=== PATIENT | male | born 1970 | race Caucasian/White ===

== ENCOUNTER 2023-04-09 18:45 | Outpatient (CLI) | payer BC, SELFPAY | END 2023-04-09 18:46 | disposition home or self-care (01) | PROVIDERS: PCP Emergency Medicine; Visit Provider Emergency Medicine | DX: Z00.00 Encounter for general adult medical examination without abnormal findings (principal); R53.83 Other fatigue; R03.0 Elevated blood-pressure reading, without diagnosis of hypertension; Z13.1 Encounter for screening for diabetes mellitus | CPT/HCPCS: 80048; 84443 ==

== ENCOUNTER 2023-05-29 08:23 | Outpatient (CLI) | payer BC, SELFPAY | END 2023-05-29 08:24 | disposition home or self-care (01) | LOC: NFLDREF 05-31 09:29 | PROVIDERS: PCP Emergency Medicine; Referring Provider Emergency Medicine; Visit Provider Emergency Medicine | DX: Z68.30 Body mass index [BMI] 30.0-30.9, adult (principal); Z12.5 Encounter for screening for malignant neoplasm of prostate; Z13.6 Encounter for screening for cardiovascular disorders | CPT/HCPCS: 80061; 80076; 84153 ==

== ENCOUNTER 2023-11-19 19:48 | Outpatient (CLI) | payer OTHER, SELFPAY | END 2023-11-19 19:49 | disposition home or self-care (01) | PROVIDERS: PCP Emergency Medicine; Visit Provider Emergency Medicine | DX: Z01.818 Encounter for other preprocedural examination (principal) | CPT/HCPCS: 80048 ==

== ENCOUNTER 2023-11-27 08:38 | Outpatient (CLI) | payer OTHER, SELFPAY | END 2023-11-27 08:39 | disposition home or self-care (01) | LOC: RAD 08:39 | PROVIDERS: PCP Emergency Medicine; Visit Provider Emergency Medicine | DX: R94.31 Abnormal electrocardiogram [ECG] [EKG] (principal) | CPT/HCPCS: 93306 ==

== ENCOUNTER 2024-06-02 08:35 | Outpatient (CLI) | payer OTHER, SELFPAY | END 2024-06-02 08:36 | disposition home or self-care (01) | LOC: NFLDREF 06-03 13:43 | PROVIDERS: PCP Emergency Medicine; Referring Provider Emergency Medicine; Visit Provider Emergency Medicine | DX: I10 Essential (primary) hypertension (principal); R94.31 Abnormal electrocardiogram [ECG] [EKG]; Z01.818 Encounter for other preprocedural examination | CPT/HCPCS: 80048 ==

== ENCOUNTER 2024-06-09 12:57 | Outpatient (CLI) | payer OTHER, SELFPAY ==
[2024-06-09 14:50] VITALS: BP 135/78; PULSE 76
--- NOTE | 2024-06-09 15:09 | W.PM.STED ---
Stress Test Note Date Date Seen: 06/09/24 Date of test: 06/09/24 Providers Primary care provider: Anjali Gutierrez Stress test physician: Judd Smith Stress Test Note Stress test ordered: Stress Echo Indication for test: Preop Results discussion: Patient is a very nice gentleman who presents for the above test after discussion the risks benefits side effects he would like to proceed indication for test is abnormal EKG preoperative. Cardiac stress test medical history form is reviewed review of the pretest EKG shows normal sinus rhythm with a ventricular rate of 62, there are Q-waves notable. And leads 3 and AVF, blood pressure is 149 on 95. Standard [place] protocol is employed over a time course of 10 minutes 1 seconds, achieved a metabolic equivalent of 11.7 Mets. His maximum heart was 150 which is 104% of the target. Test is terminated because of fulfillment of protocol, and some fatigue, he did not develop any chest pain shortness of breath or any other anginal equivalent symptoms. Impression: Negative electrographic portion of stress test, subjectively negative Follow up suggested: Await echo images, clinical correlation with these will be needed, patient left this testing facility in good condition, there were no complications.
== END 2024-06-09 12:58 | disposition home or self-care (01) ==
LOC: STRESS 12:58
PROVIDERS: PCP Emergency Medicine; Visit Provider Emergency Medicine
DX: R94.31 Abnormal electrocardiogram [ECG] [EKG] (principal)
CPT/HCPCS: 93016; 93325; 93351

== ENCOUNTER 2024-07-02 08:14 | Day surgery (SDC) | payer OTHER, SELFPAY ==
[2024-07-02 08:33] VITALS: BMI 32.1
[2024-07-02 08:35] VITALS: BP 123/78; PULSE 69; RESP 20; TEMP 36.6; O2SAT 95
--- NOTE | 2024-07-02 08:46 | W.PM.H&PU ---
History & Physical Update History & Physical Update H&P Reviewed and patient assessed: No changes noted
[2024-07-02] MEDS: 0.9 % SODIUM CHLORIDE 500 ML 500 ML 100 ML IV (08:52)
[2024-07-02] MEDS: CEFAZOLIN 1 GM inj IVP (09:05)
[2024-07-02] MEDS: BUPIVACAINE 0.25% 30 ML INJECTION (09:15)
[2024-07-02 10:00] VITALS: BP 96/71; PULSE 69; RESP 20; TEMP 36.6; O2SAT 93
--- NOTE | 2024-07-02 10:02 | W.ANESCHARGE ---
Anesthesia Charges Start Date/Time Anesthesia Start Date: 07/02/24 Anesthesia Start Time: 08:52 Stop Date/Time Anesthesia Stop Date: 07/02/24 Anesthesia Stop Time: 09:59
--- NOTE | 2024-07-02 10:06 | P.GSOP_ITS ---
Operative Note Date of procedure: 07/02/24 Pre-op diagnosis: Reducible umbilical hernia Post-op diagnosis: Same Type of Procedure: Open repair reducible 2 cm umbilical hernia with mesh. Indications: The patient is a 53-year-old male who has an umbilical hernia that has become intermittently symptomatic for him. After discussion of options, he elected to proceed with repair. Procedure Description: After discussing the risks and benefits of the procedure, the patient signed informed consent.? The operative site was marked and the patient was brought to the operating room and placed on the operating table in supine position.? Care was taken to pad the patient's pressure points.?? The patient was then given sedation by anesthesia.?? The operative site was then prepped and draped in the usual sterile fashion.? A time-out was then performed. Local anesthetic was injected into the fascia, skin and subcutaneous tissues. A curvilinear incision was made at the umbilicus. Dissection was carried down into the subcutaneous tissue using cautery. The hernia sac was encountered and care w as taken to not enter it. Dissection was taken down to the fascia, and the umbilical stalk was carefully dissected off of the hernia sac. Once the hernia sac was dissected out circumferentially, it was reduced. The fascial edges were then cleared circumferentially. The hernia was 2 cm in size and so the decision was made to use a piece of mesh. A preperitoneal pocket was created using a combination of blunt dissection and cautery. Hemostasis appeared adequate. Once the posterior fascia was clear, a piece of [address] hernia mesh was placed in the preperitoneal space with care to ensure that it laid flat. This was secured into place using 2 0 PDS interrupted sutures. The tails were then trimmed and the fascial opening was closed with a running 0 Vicryl. The umbilicus was reapproximated to the fascia. The redundant umbilical skin was excised prior to closure of the skin. The skin was then closed with running absorbable suture. A sterile dressing was then applied. ? The patient was then woken and transported to the recovery area in stable condition. ? The patient tolerated the procedure well. Findings: 2 cm fat containing umbilical hernia. Anesthesia: MAC Surgeon: Nhi Sharma MD Estimated blood loss (mL): 1 Condition: stable Disposition: same day
[2024-07-02 10:15] VITALS: BP 112/79; PULSE 76; RESP 20; O2SAT 95
[2024-07-02 10:30] VITALS: BP 114/75; PULSE 66; RESP 20; O2SAT 95
[2024-07-02 10:45] VITALS: BP 110/75; PULSE 66; RESP 20; TEMP 36.4; O2SAT 96
--- NOTE | 2024-07-02 11:39 | W.ANESCHARGE ---
Anesthesia Charges Start Date/Time Anesthesia Start Date: 07/02/24 Anesthesia Start Time: 08:52 Stop Date/Time Anesthesia Stop Date: 07/02/24 Anesthesia Stop Time: 09:59
== END 2024-07-02 11:15 | disposition home or self-care (01) ==
PROVIDERS: PCP Emergency Medicine; Visit Provider Surgery
PROC: (CPT 49591; principal; 2024-07-02 09:00)
DX: K42.9 Umbilical hernia without obstruction or gangrene (principal)
CPT/HCPCS: 49591; 00830; C1781; J0665; J0690; J1100; J1885; J2250; J2405; J2704; J3010; J3490; J7030

== ENCOUNTER 2025-01-07 16:21 | Outpatient (CLI) | payer OTHER, SELFPAY | END 2025-01-07 16:22 | disposition home or self-care (01) | PROVIDERS: PCP Emergency Medicine; Visit Provider Emergency Medicine | DX: R20.2 Paresthesia of skin (principal) | CPT/HCPCS: 82607; 84443 ==